=== PATIENT | male | born 2000 | race African-American/Black ===

== ENCOUNTER 2018-07-16 00:47 | Emergency (ER) | payer MEDICAID ==
[~2018-07-16] VITALS: Ht 185.4 cm; Wt 61.2 kg
[~2018-07-16 00:47] MED LIST: ACET-2619 PO; AMOX-842 PO; IBUP-81 PO
[2018-07-16 00:57] VITALS: BP 126/70
--- NOTE | 2018-07-16 01:04 | NUR ---
PT TAKEN TO BED 11
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
--- NOTE | 2018-07-16 01:13 | NUR ---
Dr. Melendez evaluating patient at bedside.
--- NOTE | 2018-07-16 01:39 | NUR ---
X-Ray at bedside.
[2018-07-16 01:43] LABS: BASOPHILS # (AUTO) 0.1 K/uL (0.00-0.22); BASOPHILS % (AUTO) 0.7 % (0.0-2.0); EOSINOPHILS # (AUTO) 0.1 K/uL (0-0.4); EOSINOPHILS % (AUTO) 0.7 % (0.0-4.0); HEMATOCRIT 32.1 % (36-52); HEMOGLOBIN 10.8 g/dL (12.0-18.0); LYMPHOCYTES # (AUTO) 1.3 K/uL (2.0-11.5); LYMPHOCYTES % (AUTO) 17.1 % (20.5-51.1); MEAN CORPUSCULAR HEMOGLOBIN 29 pg (27-31); MEAN CORPUSCULAR HGB CONC 34 g/dL (33-37); MEAN CORPUSCULAR VOLUME 86.7 fL (80-94); MONOCYTES % (AUTO) 14.1 % (1.7-9.3); NEUTROPHILS # (AUTO) 4.9 K/uL (1.8-7.7); NEUTROPHILS % (AUTO) 67.4 % (42.2-75.2); PLATELET COUNT (AUTO) 230 K/uL (140-450); RED BLOOD CELL COUNT(AUTO) 3.71 MIL/uL (4.20-6.10); WHITE BLOOD COUNT (AUTO) 7.3 K/uL (4.5-11.0)
[2018-07-16] MEDS ORDERED: CLINDAMYCIN 900 MG/6 ML VIAL IV ONE (01:54)
[2018-07-16 01:55] LABS: ANION GAP 12.7 (8-16); CARBON DIOXIDE 27.6 mmol/L (21-32); CREATININE 0.9 mg/dL (0.7-1.3); POTASSIUM 3.3 mmol/L (3.5-5.1)
[2018-07-16] MEDS: CLINDAMYCIN 900 MG in DEXTROSE 5% 100 ML IV ONE (01:56)
[2018-07-16] MEDS: BACITRACIN OINT 500 UNITS/GM PKT TP ONE (01:57)
[2018-07-16] MEDS: KETOROLAC 30 MG/ML VIAL IVP ONE (01:57)
[2018-07-16 01:58] LABS: PROTHROMBIN TIME 10.2 secs (10.8-13.4)
[2018-07-16] MEDS: NACL 0.9% 1,000 ML IV ONE (01:58)
[2018-07-16 02:00] LABS: ALBUMIN 3.6 g/dL (3.4-5.0); TOTAL BILIRUBIN 0.8 mg/dL (0.0-1.0)
--- NOTE | 2018-07-16 02:23 | NUR ---
GARCIA EWING CONTACTED, SPOKE WITH KONG. NO ADDITIONAL INTERVENTION NEEDED. ADVISED TO INFORM PT TO REPORT TO [employer] IF HE WISHES TO MAKE A REPORT. PT VERBALIZED UNDERSTANDING.
[2018-07-16 03:26] VITALS: BP 129/78
--- NOTE | 2018-07-16 03:27 | NUR ---
Patient discharged with v/s stable. Written and verbal after care instructions given and explained. Patient alert, oriented and verbalized understanding of instructions. Ambulatory with steady gait. All questions addressed prior to discharge. ID band removed. Patient advised to follow up with PMD. Rx of MOTRIN, TRAMDOL, BACTRIM given. Patient educated on indication of medication including possible reaction and side effects. Opportunity to ask questions provided and answered.
== END 2018-07-16 03:27 | disposition home or self-care (01) ==
LOC: MED 00:47
DX: S81.012D Laceration without foreign body, left knee, subsequent encounter (principal); S91.012D Laceration without foreign body, left ankle, subsequent encounter; R03.0 Elevated blood-pressure reading, without diagnosis of hypertension; Z79.899 Other long term (current) drug therapy; X58.XXXD Exposure to other specified factors, subsequent encounter
CPT/HCPCS: 36415; 73562; 73590; 80053; 83605; 85025; 85610; 85730; 87040; 96365; 96366; 96375; 99285; J1885; J3490; J7030; Q0092

== ENCOUNTER 2018-09-01 23:36 | Emergency (ER) | payer MEDICAID ==
[~2018-09-01] VITALS: Ht 180.3 cm; Wt 63.5 kg
[2018-09-01 23:37] VITALS: BP 112/78
[2018-09-02] MEDS ORDERED: BACITRACIN OINT 500 UNITS/GM PKT TP ONE (00:20)
[2018-09-02] MEDS ORDERED: LIDOCAINE/PRILOCAINE 2.5% 30 GM TUBE TP ONE (00:40)
[2018-09-02] MEDS ORDERED: LIDOCAINE JELLY 2% 30 ML TUBE TP ONE (00:40)
[2018-09-02 00:58] VITALS: BP 124/68
== END 2018-09-02 00:58 | disposition home or self-care (01) ==
LOC: MED 23:36
DX: S81.812D Laceration without foreign body, left lower leg, subsequent encounter (principal); Z79.899 Other long term (current) drug therapy; X58.XXXD Exposure to other specified factors, subsequent encounter
CPT/HCPCS: 99283